=== PATIENT | male | born 1985 | race Caucasian/White ===

== ENCOUNTER 2017-12-23 23:36 | Inpatient (IN) | payer OTHER ==
[~2017-12-23] VITALS: Ht 175.3 cm; Wt 70.5 kg
--- NOTE | 2017-12-23 23:41 | ED GENERAL ADULT ---
See Addendum History of Present Illness General Chief Complaint: Psychiatric Related Complaint Stated Complaint: PSYCH EVAL Source: patient Exam Limitations: clinical condition, poor historian Vital Signs & Intake/Output Vital Signs & Intake/Output Vital Signs Date Time Temp Pulse Resp B/P B/P Pulse O2 O2 Flow FiO2 Mean Ox Delivery Rate 12/25 0640 98.4 59 20 126/81 96 Room Air 12/25 0316 98.7 82 18 142/84 99 Room Air 12/25 0007 98.6 88 18 151/96 98 Room Air 12/24 2005 98.8 52 18 114/56 97 Room Air 12/24 1756 98.1 64 20 145/67 92 Room Air 12/24 1546 98.8 63 14 132/81 99 Room Air 12/24 1227 97.6 68 20 125/69 98 Room Air 12/24 1028 98.7 69 16 139/82 98 Room Air 12/24 0825 98.3 69 16 134/72 97 Room Air Triage Nurses Notes Reviewed? yes Onset: Abrupt Duration: unknown duration Timing: unknown HPI: 12/24/17 1:14 AM 32-year-old male presents to the emergency department with a friend for depression. The patient is not sharing much other than the fact that he is depressed. He does admit to drug use. He denies drinking alcohol today. History is limited due to his failure to share what he is feeling. (Sae Rueda DO) Allergies Coded Allergies: No Known Allergies (12/24/17) (Thalia ARAGON,John Conn) Past History Travel History Traveled to [place] past 21 day No Medical History Any Pertinent Medical History? see below for history Psychiatric: depression Surgical History Surgical History: non-contributory Family History Hx Contributory? No (Sae Rueda DO) Review of Systems Review of Systems Constitutional: Denies: fever. EENTM: Reports: no symptoms. Respiratory: Reports: no symptoms. Cardiovascular: Reports: no symptoms. GI: Reports: no symptoms. Genitourinary: Reports: no symptoms. Musculoskeletal: Reports: no symptoms. Skin: Reports: no symptoms. Neurological/Psychological: Reports: no symptoms. Hematologic/Endocrine: Reports: no symptoms. Immunologic/Allergic: Reports: no symptoms. (Sae Rueda DO) Physical Exam Physical Exam General Appearance: well developed/nourished, alert, awake, anxious, mild distress Head: atraumatic, normal appearance Eyes: Bilateral: normal appearance, PERRL, EOMI. Ears, Nose, Throat: normal pharynx, normal ENT inspection Neck: normal inspection, supple Respiratory: normal breath sounds, chest non-tender Cardiovascular: regular rate/rhythm Peripheral Pulses: 4+ radial (R), 4+ radial (L) Gastrointestinal: soft, non-tender Back: normal range of motion Extremities: normal range of motion Neurologic/Psych: no motor/sensory deficits, awake, alert, oriented x 3 Skin: intact, normal color, warm/dry Core Measures ACS in differential dx? No CVA/TIA Diagnosis: No Sepsis Present: No Sepsis Focused Exam Completed? No (Sae Rueda DO) Progress Differential Diagnoses I considered the following diagnoses in my evaluation of the patient: [ Depression, and alcohol intoxication, substance] Plan of Care: Orders Procedure Date/time Status Continuous Observation Monitor 12/25 0203 Active Regular Diet 12/24 D Active Current Medications Sig/Jing Start time Last Medication Dose Stop Time Status Admin Aripiprazole 5 MG DAILY 12/24 0900 [facility] (Abilify) [place] Carbonate 600 MG 0800 12/24 0800 [facility] ([place] Carbonate) Gabapentin 100 MG Q8 12/24 0600 [facility] (Neurontin) Initial ED EKG: none (Sae Rueda DO) Comments: 12/24/2017 7:19:20 AM patient signed out to me by Dr. Rueda at shift change director. 12/24/2017 7:47:50 PM patient signed out to me by Dr. Rueda at shift change director after an uneventful emergency department stay during the day shift. 12/25/2017 8:14:52 AM patient signed out to me by Dr. Vásquez at shift change director. I attempted to evaluate Zion but he is currently in the bathroom. (Shaista ARAGON,Sae Christian) Departure Departure Disposition: STILL A PATIENT Condition: Stable Clinical Impression Primary Impression: Depression Departure Forms: Customer Survey General Discharge Information Comments 12/24/17 The patient was placed in a quiet room. Labs were sent. Crisis consultation was requested. The patient will be signed out to Dr. Noonan at 7 AM (Sae Rueda DO) Departure Comments pt to be signed out to dr. noonan, 12/25/17, 7am. (Thalia ARAGON,John Conn) Critical Care Note Critical Care Note Critical Care Time: non-applicable (Sae Rueda DO) Critical Care Note Critical Care Note Critical Care Time: non-applicable (Sae Rueda DO) Comments: 12/24/2017 7:19:20 AM patient signed out to me by Dr. Rueda at shift change director. 12/24/2017 7:47:50 PM patient signed out to me by Dr. Rueda at shift change director after an uneventful emergency department stay during the day shift. (Shaista ARAGON,Sae Christian) Departure Departure Disposition: STILL A PATIENT Condition: Stable Clinical Impression Primary Impression: Depression Departure Forms: Customer Survey General Discharge Information Comments 12/24/17 The patient was placed in a quiet room. Labs were sent. Crisis consultation was requested. The patient will be signed out to Dr. Noonan at 7 AM (Sae Rueda DO) Critical Care Note Critical Care Note Critical Care Time: non-applicable (Sae Rueda DO)
[2017-12-24 00:23] LABS: ABSOLUTE BASOPHIL COUNT 0.1 /CUMM (0.0-0.2); ABSOLUTE EOSINOPHIL COUNT 0.1 /CUMM (0.0-0.7); ABSOLUTE GRANULOCYTE CT 5.5 /CUMM (1.4-6.5); ABSOLUTE MONOCYTE COUNT 0.6 /CUMM (0.10-0.60); BASOPHIL % 1.1 % (0.0-2.0); EOSINOPHIL % 0.6 % (0-5); GRANULOCYTE % 66.5 % (42.2-75.2); HEMATOCRIT 43.3 % (42-52); MEAN CORPUSCULAR HGB 30.2 PG (27.0-31.0); MEAN CORPUSCULAR HGB CONC 34.4 G/DL (33.0-37.0); MEAN CORPUSCULAR VOLUME 87.8 FL (80.0-94.0); MEAN PLATELET VOLUME 8.9 FL (7.4-10.4); PLATELET COUNT 218 /CUMM (130-400); RBC DISTRIBUTION WIDTH 13.2 % (11.5-14.5); RED BLOOD CELL CT 4.94 /CUMM (4.70-6.10); WHITE BLOOD CELL COUNT 8.3 /CUMM (4.8-10.8)
[2017-12-24 00:40] LABS: LITHIUM < 0.2 mmol/L (0.6-1.2)
--- NOTE | 2017-12-24 13:35 | ED PSYCH CRISIS CONSULTATION ---
Crisis Consult Basic Assessment Date of Consult: 12/24/17 Responsible Person/Accompanied By: OfeliaerJavier Bal Insurance Authorization: Insurance #1: Insurance name: SELF-PAY Phone number: Policy number: Group number: Authorization number: ED Provider: Patient's ED Provider: Sae Rueda DO Primary Care Physician: Patient's PCP: Unknown PCP's Phone Number: Current Psychiatrist: None Chief Complaint: Psychiatric Related Complaint Patient's Quote: " I don't know." Present Illness: The patient is a 32 year old, male presenting to the ED, with his brother after not sleeping and acting in a bizarre nature. 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
--- NOTE | 2017-12-24 13:56 | ED PSY CRISIS COLLATERAL NOTE ---
Collateral Note Collateral Note Family/Inform/Dariel Contacts: SW met with the patients brother for collateral information, Greg Bal- ([phone]). Greg states that the patient has been acting in a bizarre manner for the last 3 days. Greg states that the brother has had an increase in stress, with being laid off from work and having relationship issues with his . Greg states that the patient and his have been going through Marriage counseling (1 year). Greg states that the patient and his have taken a separation and that their son has been staying with the patients sister. Greg states that through counseling the patient has connected with his father, who he has not been in contact with for many years. Greg states that the patient has not been sleeping and has not been eating. Greg states that on Thursday the patient began acting in a way that was not characteristic of his baseline. Per Greg the patient "started to eat cat food, act like a dog, saluting and acting like a [place] ." Greg states that he went in and out of his car "70 times," and would event planning manager front of him staring and not saying a word. Greg states that the patient was admitted to [facility] about 3-4 weeks ago and was diagnosed with Bipolar Disorder. Greg states that there was not a good discharge plan and that the patient has not been on any medications or been in any treatment. Greg states that the patient can be religiously preoccupied and has jumped into water stating he was baptizing himself. Greg is very concerned about the patient and would like him to get help.
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
[2017-12-25 16:48] VITALS: BP 129/69
[2017-12-25 19:57] VITALS: BP 144/92
[2017-12-25] MEDS ORDERED: GABAPENTIN400 M2 PO (20:16)
[2017-12-25] MEDS ORDERED: ATIVAN2 MG PO (20:19)
[2017-12-25] MEDS ORDERED: ABILIFY2 MG PO (20:21)
[2017-12-25] MEDS ORDERED: ABILIFY5 M1 PO (20:22)
[2017-12-25] MEDS ORDERED: LITHIUM CARBON600 M1 PO (20:24)
[2017-12-26 07:36] VITALS: BP 127/78
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
[2017-12-26 11:52] VITALS: BP 121/75
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
[2017-12-26 15:33] VITALS: BP 146/84
--- NOTE | 2017-12-26 17:55 | History & Physical ---
General Information and HPI MD Statement: I have seen and personally examined CHASITY MERCADO and documented this H&P. The patient is a 32 year old M who presented with a patient stated chief complaint of " My brother brought me here" Source of Information: patient Exam Limitations: no limitations History of Present Illness: 32-year-old male with past medical history significant for bipolar, depression, chronic back pain who was brought in by his family as they found that his mental behavior was not right. Patient claims that he should not have been admitted to the hospital. Apparently his brother visited him in the hotel. The bladder token for the right and then patient put his hand on the steering wheel, brother got scared that he will get hurt by the patient therefore he brought him to the hospital. Patient claims that he's under a lot of stress these days between him and his due to some marital difficulties. He also has a son. He also is facing financial difficulties. He has been overall under a lot of stress and feels depressed. He was initially agitated in the emergency room but later calmed down after receiving Haldol and Ativan. Allergies/Medications Allergies: Coded Allergies: No Known Allergies (12/24/17) Home Med list Aripiprazole (Abilify) 5 MG TABLET 5 MG PO ONCE DEPRESSION (Reported) Gabapentin 400 MG CAPSULE 400 MG PO TID MOOD STABILITY (Reported) [place] Carbonate 600 MG CAPSULE 600 MG PO BID MOOD STABILIZER (Reported) Lorazepam (Ativan) 2 MG TABLET 2 MG PO PRN ANXIETY (Reported) Past History Travel History Traveled to [place] past 21 day No Medical History Neurological: NONE EENT: NONE Cardiovascular: NONE Respiratory: NONE Gastrointestinal: NONE Hepatic: NONE Renal: NONE Musculoskeletal: chronic back pain Psychiatric: bipolar disease, depression Endocrine: NONE Blood Disorders: NONE Cancer(s): NONE ABRASIVE WHEEL MOLDER/Reproductive: NONE Isolation History: Standard Surgical History Surgical History: non-contributory Past Family/Social History Family History Relations & Conditions if any MOTHER Relation not specified for: FH: HTN (hypertension) Psychosocial History ETOH Use: denies use Illicit Drug Use: marijuana Employment History Employment Unemployed 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 Review of Systems Review of Systems Constitutional: Reports: see HPI. EENTM: Reports: see HPI. Cardiovascular: Reports: see HPI. Respiratory: Reports: see HPI. GI: Reports: see HPI. Musculoskeletal: Reports: see HPI. Neurological/Psychological: Reports: see HPI. Exam & Diagnostic Data Last 24 Hrs of Vital Signs/I&O Vital Signs Date Time Temp Pulse Resp B/P B/P Pulse O2 O2 Flow FiO2 Mean Ox Delivery Rate 12/26 1533 68 146/84 12/26 1152 71 121/75 12/26 0736 96.7 77 127/78 12/25 1957 98.8 66 144/92 Intake & Output 12/26 1600 12/26 0800 12/26 0000 Intake Total Output Total Balance Patient 156 lb Weight Physical Exam General Appearance Alert, Oriented X3, Cooperative Skin No Rashes HEENT PERRLA Neck Supple Cardiovascular Regular Rate, Normal S1, Normal S2 Lungs Clear to Auscultation Abdomen Normal Bowel Sounds, Soft, No Tenderness Neurological Cranial Nerves II through XII: Intact Last 24 Hrs of Labs/Alex: Laboratory Tests 12/26/17 0610: Hemoglobin A1c Pending, Triglycerides 115, Cholesterol 183, LDL Cholesterol, Calc 116, HDL Cholesterol 44, Cholesterol/HDL Ratio 4 Laboratory Tests 12/26 12/25 12/24 0610 1334 0711 Chemistry Hemoglobin A1c (4.2 - 5.8 %) Pending Triglycerides (<150 mg/dL) 115 Cancelled Cholesterol (< 200 MG/DL) 183 Cancelled LDL Cholesterol, Calc (65 - 129 mg/dL) 116 Cancelled HDL Cholesterol (40 - 60 mg/dL) 44 Cancelled Cholesterol/HDL Ratio (0.00 - 4.88 %) 4 Cancelled Toxicology Urine Opiates Screen (>2000 NG/ML) < 100 Methadone Screen (>300 NG/ML) < 40 Barbiturate Screen (>200 NG/ML) < 60 Ur Phencyclidine Scrn (>25 NG/ML) < 6.00 Amphetamines Screen (>1000 NG/ML) < 100 U Benzodiazepines Scrn (>200 NG/ML) < 85 Urine Cocaine Screen (>300 NG/ML) < 50 Urine Cannabis Screen (>50 NG/ML) > 80.00 H 12/24 12/23 0011 2341 Chemistry Sodium (137 - 145 mmol/L) 142 Potassium (3.5 - 5.1 mmol/L) 3.6 Chloride (98 - 107 mmol/L) 104 Carbon Dioxide (22 - 30 mmol/L) 28 Anion Gap (5 - 16) 11 BUN (9 - 20 mg/dL) 6 L Creatinine (0.7 - 1.2 mg/dL) 0.5 L Estimated GFR (>60 ml/min) > 60 BUN/Creatinine Ratio (7 - 25 %) 12.0 Glucose (65 - 99 mg/dL) 108 H Hemoglobin A1c (4.2 - 5.8 %) 5.3 Calcium (8.4 - 10.2 mg/dL) 9.2 Total Bilirubin (0.2 - 1.3 mg/dL) 0.4 AST (17 - 59 U/L) 17 ALT (21 - 72 U/L) 23 Alkaline Phosphatase (< 127 U/L) 89 Total Protein (6.3 - 8.2 g/dL) 6.9 Albumin (3.5 - 5.0 g/dL) 4.1 Globulin (1.9 - 4.2 gm/dL) 2.8 Albumin/Globulin Ratio (1.1 - 2.2 %) 1.5 Triglycerides (<150 mg/dL) 60 Cholesterol (< 200 MG/DL) 180 LDL Cholesterol, Calc (65 - 129 mg/dL) 120 HDL Cholesterol (40 - 60 mg/dL) 48 Cholesterol/HDL Ratio (0.00 - 4.88 %) 4 Hematology CBC w Diff NO MAN DIFF REQ Cancelled WBC (4.8 - 10.8 /CUMM) 8.3 Cancelled RBC (4.70 - 6.10 /CUMM) 4.94 Cancelled Hgb (14.0 - 18.0 G/DL) 14.9 Cancelled Hct (42 - 52 %) 43.3 Cancelled MCV (80.0 - 94.0 FL) 87.8 Cancelled MCH (27.0 - 31.0 PG) 30.2 Cancelled MCHC (33.0 - 37.0 G/DL) 34.4 Cancelled RDW (11.5 - 14.5 %) 13.2 Cancelled Plt Count (130 - 400 /CUMM) 218 Cancelled MPV (7.4 - 10.4 FL) 8.9 Cancelled Gran % (42.2 - 75.2 %) 66.5 Lymphocytes % (20.5 - 51.1 %) 24.6 Monocytes % (1.7 - 9.3 %) 7.2 Eosinophils % (0 - 5 %) 0.6 Basophils % (0.0 - 2.0 %) 1.1 Absolute Granulocytes (1.4 - 6.5 /CUMM) 5.5 Absolute Lymphocytes (1.2 - 3.4 /CUMM) 2.0 Absolute Monocytes (0.10 - 0.60 /CUMM) 0.6 Absolute Eosinophils (0.0 - 0.7 /CUMM) 0.1 Absolute Basophils (0.0 - 0.2 /CUMM) 0.1 Toxicology [place] (0.6 - 1.2 mmol/L) < 0.2 L Serum Alcohol (<10 MG/DL) < 10.0 Cancelled Assessment/Plan Assessment: 32-year-old male with history significant for bipolar disorder, depression and chronic back pain admitted to Inpatient Psychiatry with worsening depression and a lot of stress factors. I reviewed patient's labs. He drops is positive for cannabis. [place] levels were low. Otherwise his lab work looks okay and his vital signs are stable. I will leave psychiatric management up with psychiatrist. As Ranked By This Provider Problem List: 1. Depression 2. Bipolar 1 disorder, depressed Miscellaneous Miscellaneous Documentation Attending Case Discussed With: Nelida Kendrick M.D. Primary Care Physician: Unknown Patient sees these Specialists psychiatrist Level of Patient Care: ARNOLD Luz
[2017-12-26 20:01] VITALS: BP 136/87
[2017-12-27 07:45] VITALS: BP 136/96
--- NOTE | 2017-12-27 11:18 | CP SOUTH PROGRESS NOTE PSYCH ---
Psych (Inpt) Progress Note Progress Note Vital Signs Date Time Temp Pulse Resp B/P O2 12/27 0745 97.1 86 136/96 12/26 2000 98.9 64 136/87 12/26 1533 68 146/84 12/26 1152 71 121/75 Mental Status Examination: steady gait, cooperative, Normal psychomotor activity. No abnormal behaviors. Normal speech, not pressured. Good range of affect. denied feeling depressed today, he reported that his mood was unstable before coming to the hospital Suicidal Ideation: Denied thoughts of suicide today. Denied thoughts of homicide. Denied hallucinations. Denied feeling paranoid, there were no delusions during the interview. He was coherent, there was no significant thought disorder. Seems to have some insight into his behaviors before coming to the hospital. His judgment seems seemed reasonable in hypothetical situations, recent history suggests that he may have had impaired judgment in the past week or so He was alert and oriented to time, place, and person. He did not seem to have any difficulties with information processing during the interview. There was no evidence of short-term memory impairment during the interview. Assessment: 32-year-old single white male who was admitted to the inpatient psychiatric unit after his brother brought him to the emergency room because of erratic/bizarre behavior The examples given where the patient not sleeping for a few days in a row, patient diving into benitez and the pool reportedly fully clothed and saying that he was baptizing himself, and the patient eating cat food. Diagnosis(es): Unspecified bipolar mood disorder Treatment Plan Update: Increase Abilify to 10 mg daily Continue other medications unchanged Impression and Plan: 32-year-old single white male who was admitted to the inpatient psychiatric unit after his brother brought him to the emergency room because of erratic/bizarre behavior The examples given where the patient not sleeping for a few days in a row, patient diving into benitez and the pool reportedly fully clothed and saying that he was baptizing himself, and the patient eating cat food. - Include all active medical diagnosis that require tx DSM 5 Diagnosis(es): Unspecified bipolar mood disorder - Initial Tx Plan for Active Psych & Medical Conditions Treatment Plan: Inpatient psychiatric care with safety checks every 15 minutes and Discontinue lithium Start Abilify 5 mg daily Nursing assessments, vital signs, patient education, biopsychosocial assessment by social work Collateral information and aftercare planning and Group therapy, activity therapy, and milieu therapy
[2017-12-27 11:53] VITALS: BP 129/74
[2017-12-27 15:36] VITALS: BP 131/87
[2017-12-27 19:51] VITALS: BP 140/79
[2017-12-28 07:40] VITALS: BP 145/93
--- NOTE | 2017-12-28 08:52 | CP SOUTH PROGRESS NOTE PSYCH ---
Psych (Inpt) Progress Note Progress Note Vital Signs Date Time Temp Pulse Resp B/P B/P Pulse O2 O2 Flow FiO2 Mean Ox Delivery Rate 12/28 1606 73 144/96 12/28 1534 79 138/87 12/28 1209 76 133/89 12/28 0912 Room Air Room Air 12/28 0740 97.9 75 145/93 12/27 1951 68 140/79 Mental Status Examination: steady gait, cooperative, Normal psychomotor activity. No abnormal behaviors, normal speech, not pressured. Good range of affect, denied feeling depressed today, he reported that his mood was unstable before coming to the hospital, denied thoughts of suicide today. Denied thoughts of homicide. Denied hallucinations. Denied feeling paranoid, there were no delusions during the interview. He was coherent, there was no significant thought disorder. Seems to have some insight into his behaviors before coming to the hospital. He was alert and oriented to time, place, and person. He did not seem to have any difficulties with information processing during the interview. There was no evidence of short-term memory impairment during the interview. Assessment: 32-year-old single white male who was admitted to the inpatient psychiatric unit after his brother brought him to the emergency room because of erratic/bizarre behavior (diving into benitez and the pool reportedly fully clothed and saying that he was baptizing himself, and the patient eating cat food. Diagnosis(es): Unspecified bipolar mood disorder Treatment Plan Update: MRI of the brain Continue Abilify 10 mg daily Continue other medications unchanged
[2017-12-28 12:09] VITALS: BP 133/89
[2017-12-28 15:34] VITALS: BP 138/87
--- NOTE | 2017-12-28 15:58 | MRI REPORT ---
EXAMINATION: MR BRAIN WITHOUT CONTRAST CLINICAL INFORMATION: New psychotic symptoms. COMPARISON: None. TECHNIQUE: Multiplanar, multisequence imaging of the brain was performed without contrast. FINDINGS: No diffusion abnormalities are identified to suggest an acute or subacute infarct. The ventricles are normal in size. No mass effect or midline shift is seen. No brain parenchymal signal abnormality is noted. No extra-axial fluid collections are seen. The brainstem and cerebellum are normal. The gradient refocused acquisition is normal. The craniovertebral junction, marrow signal, and midline structures are normal. The major intracranial flow voids at the level of the [place] of Singh are preserved. The dural venous sinus flow voids are maintained. The mastoid air cells are well aerated. There is mild mucosal thickening in the maxillary and ethmoid sinuses. IMPRESSION: Normal MRI of the brain. No acute process.
[2017-12-28 16:06] VITALS: BP 144/96
--- NOTE | 2017-12-28 17:30 | SOCIAL WORKER PROG NOTE PSYCH ---
Social Work Progress Note Progress Note This resume writer met with patient. He stated that he came to the hospital because "I have alot of stress in my life" which was leading to feeling overhwhelmed. Patient stated that his "mentioned divorce" about 1 1/2 years ago. 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 This occurred about 6 months ago, which is when he started to notice increased depression. Patient stated that he smokes MJ for anxiety and depression, and has a Medical MJ Card. Patient denied any substance use, however, reported ingesting "alot of sugar" prior to coming to the ER, which he believes contributed to his behavior. Patient reported that he slept well last night. He denied SI/HI/AH/VH. He complained of difficulty urinating and stated that he has not had a bowel movement since admission (prior to that, he reported experiencing diarrhea). Patient was agreeable to a family meeting with his sister, Ninfa Mckeon, and his father, Greg Bal. Patient stated that he would like a referral to [facility] and is willing to abstain from MJ use, stating that he is able to manage his sx without use as evidence by, "I obviously haven't used MJ while I've been here [[facility]
--- NOTE | 2017-12-28 17:46 | SOCIAL WORKER PROG NOTE PSYCH ---
Social Work Progress Note Progress Note The services requested require additional review. You will be contacted regarding the status of this request if further information is needed. An authorization decision will be made within the required timeframes and details of that decision may be found under the member's authorization history. Member Name Member ID Member Subscriber Name Subscriber ID CHASITY MERCADO [id number] CHASITY MERCADO [id number] Pended Authorization # Client Authorization # Type of Request [id number] CONCURRENT Date of Admission/ Start of Services Requested From Submission Date 12/25/2017 12/28/2017 12/28/2017 Level of Service Type of Service Level of Care Type of Care INPATIENT/HLOC [facility]patient [facility] - Inpatient Hospital Reason Code P76 Provider Name & Address Provider ID Provider Alternate ID NPI # for Authorization [facility] [id number] [address] [place] [id number]
[2017-12-28 19:27] VITALS: BP 149/91
[2017-12-29 08:00] VITALS: BP 147/95
[2017-12-29 12:10] VITALS: BP 144/85
--- NOTE | 2017-12-29 13:24 | CP SOUTH PROGRESS NOTE PSYCH ---
Psych (Inpt) Progress Note Progress Note Vital Signs Date Time Temp Pulse B/P 12/29 1210 74 144/85 12/29 0800 97.2 73 147/95 12/28 1927 97.9 67 149/91 12/28 1606 73 144/96 Mental Status Examination: The patient continues to have a thought disorder (some tangents and circumstantial thought process but all-in-all not incoherent). He however is calm and cooperative. He is not agitated and shows normal psychomotor activity. No abnormal behaviors. Today he was talkative with some pressure. He showed good range of affect, denied feeling depressed today, he denied thoughts of suicide today. The patient denied thoughts of homicide, denied hallucinations, denied feeling paranoid, and there were no delusions during the interview. He was alert and oriented to time, place, and person. The patient today seems to have difficulties with attention concentration and information processing. He has told his father that there is a family meeting today when there was not. There was no evidence of short-term memory impairment during the interview. The patient gave me a long list of things that he intends to do to change his life around including: Rest, heat therapy, Spiriva, acupuncture, yoga, back surgery, a TENS unit, singing, poetry, giving self space and time, white noise, lavender/aromatherapy, etc. Assessment: Chris is a 32-year-old White Male who was admitted to the inpatient psychiatric unit on 12/25/2017 after his brother brought him to the emergency room because of erratic/bizarre behavior (diving into benitez and the pool reportedly fully clothed and saying that he was baptizing himself, and the patient eating cat food). The patient is showing some signs of improvement, however, he does seem to continue to have a thought disorder as well as impairment in insight and some eccentric, idiosyncratic thoughts and behaviors MRI of the brain was normal Diagnosis(es): Unspecified bipolar mood disorder Treatment Plan Update: Continue Abilify 10 mg daily Continue other medications unchanged
[2017-12-29 15:48] VITALS: BP 147/95
--- NOTE | 2017-12-29 17:55 | SOCIAL WORKER PROG NOTE PSYCH ---
Social Work Progress Note Progress Note This typewriter ribbon winder was informed at 11am that the patient's father was here for a family meeting. This typewriter ribbon winder spoke with patient who stated that he felt it would be good for us to meet and asked his father to come in. Yolanda Graves (medical student) and this typewriter ribbon winder met with the patient and his father. Patient's father shared that they had not been in contact for many years until recently. He reported obsersving increased depression and anxiety. He denied noticing any symptoms suggesting paranoia or psychosis. He stated that the patient does not have any access to weapons in the home. Patient's father reported that the patient has an eating disorder and sleeping disorder. Patient's father shared that the patient could stay with him after discharge if he would like. The patient was actively involved in this conversation. He was agreeable to scheduling a second family meeting with his sister, brother and (Stephanie, ). This typewriter ribbon winder met with patient. He felt that the meeting with his father went well and maintains interest in a second meeting. Patient denied SI/HI/AH/VH.
[2017-12-29 19:37] VITALS: BP 162/88
[2017-12-30 07:43] VITALS: BP 143/88
--- NOTE | 2017-12-30 09:13 | CP SOUTH PROGRESS NOTE PSYCH ---
Psych (Inpt) Progress Note Progress Note Laboratory Tests 12/30 1438 Urines Urine Color (YEL,AMB,STR) YEL Urine Clarity (CLEAR) CLEAR Urine pH (5.0 - 8.0) 6.0 Ur Specific [place] (1.001 - 1.035) <= 1.005 Urine Protein (NEG,<30 MG/DL) NEG Urine Ketones (NEG) NEG Urine Nitrite (NEG) NEG Urine Bilirubin (NEG) NEG Urine Urobilinogen (0.1 - 1.0 EU/dl) 0.2 Ur Leukocyte Esterase (NEG) NEG Ur Microscopic EXAM NOT REQUIRED Urine Hemoglobin (NEG) NEG Urine Glucose (N MG/DL) NEG Vital Signs Date Time Temp Pulse B/P B/P Pulse O2 O2 Flow FiO2 12/30 1227 69 156/80 12/30 0743 96.2 74 143/88 12/29 1937 97.7 74 162/88 12/29 1548 73 147/95 Mental Status Examination: The patient has somatic focus, today, he's complaining of back pain, difficulty urinating continues to have a thought disorder, however, he is calm and cooperative. He is not agitated, normal psychomotor activity, no abnormal behaviors, talkative with some pressure, showed good range of affect, denied feeling depressed, denied thoughts of suicide today. The patient denied thoughts of homicide, denied hallucinations, denied feeling paranoid, and there were no delusions during the interview. He was alert and oriented to time, place, and person. The patient today seems to have difficulties with attention concentration, no evidence of short-term memory impairment during the interview. Assessment: Chris is a 32-year-old White Male who was admitted to the inpatient psychiatric unit on 12/25/2017 after his brother brought him to the emergency room because of erratic/bizarre behavior (diving into benitez and the pool reportedly fully clothed and saying that he was baptizing himself, and the patient eating cat food). The patient is showing some signs of improvement, however, he does seem to continue to have a thought disorder as well as impairment in insight and some eccentric, idiosyncratic thoughts and behaviors Diagnosis(es): Unspecified bipolar mood disorder Treatment Plan Update: reduce duloxetine to 30 mg due to c/o "difficulty urinating" Add ulram for back pain bethanechol 10 mg x once Urinanalysis Continue Abilify 10 mg daily Bethanechol Chloride 10 MG ONCE ONE 12/30 1230 DC PO 12/30 1231 PO PO 0934 Gabapentin 1,200 MG AT BEDTIME 12/29 2100 AC 12/29 PO 2119 Gabapentin 600 MG 0800 & 1300 12/29 0800 AC 12/30 PO 1406 Haloperidol 5 MG Q6-PRN PRN 12/25 1945 AC 12/30 PO 12/29 1853 Ibuprofen 400 MG Q4P PRN 12/27 1230 AC 12/30 PO 0915 Magnesium Hydroxide 30 ML AT BEDTIME PRN 12/25 1345 AC PO PO 2207 Tramadol HCl 50 MG Q6-PRN PRN 12/30 1230 AC PO PO
[2017-12-30 12:27] VITALS: BP 156/80
--- NOTE | 2017-12-30 15:38 | SOCIAL WORKER PROG NOTE PSYCH ---
See Addendum Social Work Progress Note Progress Note This freelance copywriter met with patient. He complained of back pain causing him to have a "bad day." He reported his mood generally "pretty level" and stated that he is "satisfied with mood stabilizers." Patient denied SI/HI/AH/VH. He was agreeable to a family meeting with his , sister and brother. PHOENIX's signed and this freelance copywriter will contact his to coordinate the meeting. Patient stated that he would like to go to [facility] for IOP. He also requested an appointment with [facility]. This freelance copywriter spoke with patient's , Stephanie Bal, by phone ([phone]) to schedule a family meeting. She stated that she is not available until 4pm (nor are his sister and brother) due to work. This freelance copywriter agreed to speak with Dr. Peralta about his schedule and will call Stephanie in the morning to schedule the meeting. Stephanie expressed concern about the patient having a provider after discharge and stated that she has scheduled an appointment with Michelle Mccurdy APRN with [facility] in [facility] (01/08/18 at 2pm). This freelance copywriter informed her that discharge planning occurs and this freelance copywriter will be contacting [facility] in interest of their IOP. She thanked this freelance copywriter for the call and stated that she would be visiting the patient this evening. This freelance copywriter contacted [facility] ([phone]) and spoke with Sandra. She confirmed that they have an IOP (both mental health and dual) and that clinical could be faxed over for a referral. She stated that she would be in contact with this freelance copywriter to schedule an intake appointment. Sandra stated that intakes are being scheduled next week and, if accepted, the patient would be seen by a medication provider that day he starts IOP. The following were faxed to [facility], attn: Sandra, at [phone] on 12/30/17 at 1603: Demographics Social history Crisis Diagnostic Assessment Initial Assessment Medication List
[2017-12-30 16:18] VITALS: BP 155/98
[2017-12-30 19:42] VITALS: BP 151/93
[2017-12-31 07:33] VITALS: BP 144/87
--- NOTE | 2017-12-31 10:48 | SOCIAL WORKER PROG NOTE PSYCH ---
Social Work Progress Note Progress Note This insurance underwriter sales spoke with Marce Davis) by phone in interest of obtaining an inpatient authorization ([id number]). She authorized 7 days, starting 12/25/17 -01/01/18 [place] an [place] # [place] [id number]. may bill directly to [facility]. Bhavesh Mar and Jefe Tom were informed of this.
[2017-12-31 12:00] VITALS: BP 140/84
--- NOTE | 2017-12-31 12:41 | CP SOUTH PROGRESS NOTE PSYCH ---
Psych (Inpt) Progress Note Progress Note Vital Signs Date Time Temp Pulse B/P B/P Pulse O2 FiO2 12/31 1200 87 140/84 12/31 0733 98.8 88 144/87 12/30 1942 98.4 92 151/93 12/30 1618 80 155/98 Mental Status Examination: Patient was interviewed at length by the medical student. 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 The patient denied thoughts of homicide, He was alert and oriented to time, place, and person. The patient today seems to have difficulties with attention concentration, no evidence of short-term memory impairment during the interview. Assessment: Chris Bal is a 32-year-old White Male who was admitted to [facility]'s inpatient psychiatric unit on 12/25/2017 after his brother brought him to the emergency room because of erratic/bizarre behavior (diving into benitez and the pool reportedly fully clothed and saying that he was baptizing himself, and the patient eating cat food). The patient has not been having any thoughts of suicide or violence or homicide, however, he has a subtle thought disorder as well as impairment in insight and eccentric, idiosyncratic/?delusional thoughts and behaviors. Further interviewing today revealed recent geuine hallucinations (audio) as well as delusional thoughts Differential Diagnoses: Unspecified bipolar mood disorder Unspecified Psychotic Disorder Cannabis Use Disorder Treatment Plan Update: D/C duloxetine Continue Abilify 10 mg daily Gabapentin 1,200 MG AT BEDTIME Gabapentin 600 MG 0800 & 1300 Haloperidol 5 MG Q6-PRN PRN PO PO 0934 Gabapentin 1,200 MG AT BEDTIME 12/29 2100 AC 12/29 PO 2119 Gabapentin 600 MG 0800 & 1300 12/29 0800 AC 12/30 PO 1406 Haloperidol 5 MG Q6-PRN PRN 12/25 1945 AC 12/30 PO 12/29 1853 Ibuprofen 400 MG Q4P PRN 12/27 1230 AC 12/30 PO 0915 Magnesium Hydroxide 30 ML AT BEDTIME PRN 12/25 1345 AC PO PO 2207 Tramadol HCl 50 MG Q6-PRN PRN 12/30 1230 AC PO PO DICTATED BY: Fabian ARAGON,Dami
[2017-12-31 15:39] VITALS: BP 151/94
--- NOTE | 2017-12-31 17:18 | SOCIAL WORKER PROG NOTE PSYCH ---
Social Work Progress Note Progress Note This grant writer scheduled a family meeting with patient's , Stephanie, for today at 4pm. She will contact his brother, Greg, and sister, Ninfa. Ninfa later contacted this grant writer and she will attend the meeting by phone. This grant writer met with patient. He described his mood as "excellent" and only had concerns about his back pain. Patient stated that he does not need an appointment to be made with pain management, and will contact them himself when he discharges. Patient denied SI/HI/AH/VH. Patient and this grant writer spoke with Sandra at [facility] and an intake appointment to assess for IOP is scheduled for 01/04/18 at 12:30pm. 3:55pm Aditya Graves [facility] [place] commercial intern and this grant writer met with the patient, his Stephanie Bal and sister Ninfa Powell ([phone]) in the conference room. Dr. Peralta addressed questions and concerns about medictions, diagnosis and treatment. Discharge plans were also discussed (IOP intake at [facility]) and the plan for the patient to stay with his sister, Ninfa, temporarily upon discharge. Patient's family discussed his erratic behavior such as wanting to dive into a benitez that is only 1 foot deep and buying a democrat bus. Stephanie shared that there were nights where he would stay up all night and go to the casino late at night. Ninfa observed a personality change, especially when trying to help others - "it broke him." Ninfa and Stephanie stated that these concerns and observations in changed personality took place over the past 2-3 months. Stephanie and Ninfa stated that there are no guns or weapons in the family homes and patient confirmed that he does not have access to guns or weapons. Dr. Peralta recommended that the patient not discharge tomorrow. Mary supported this, which patient ultimately agreed to. The intake with [facility] will remain on 01/04/18 for now. After Ninfa hung up, patient returned to the unit. Aditya Graves and this grant writer met with Stephanie. She expressed concerns about the patient regarding his delusions that "focused on me [Stephanie]" regarding jealousy. Dr. Peralta provided additional education on diagnoses and symptoms. She stated that she has a therapist and has attended [facility] groups. She also plans to attend the family group on [facility] on Sundays.
[2017-12-31 19:36] VITALS: BP 155/89
[2018-01-01 07:29] VITALS: BP 151/83
[2018-01-01 12:15] VITALS: BP 134/83
--- NOTE | 2018-01-01 12:30 | CP SOUTH PROGRESS NOTE PSYCH ---
Psych (Inpt) Progress Note Progress Note Mental Status Examination: Patient has a subtle thought disorder denied hallucinations (prior to admission was hearing a voice that he attributed to his aunt/father's sister) denied feeling paranoid, he was calm and cooperative, normal psychomotor activity/not agitated no abnormal behaviors, talkative with some pressure, showed good range of affect , denied feeling depressed, denied thoughts of suicide today. The patient denied thoughts of homicide, He was alert and oriented to time, place, and person. Some difficulties with attention concentration, no evidence of short-term memory impairment during the interview. Assessment: Chris Bal is a 32-year-old White Male who was admitted to [facility]'s inpatient psychiatric unit on 12/25/2017 after his brother brought him to the emergency room because of erratic/bizarre behavior. pt. acknowledged that there was bhaskar hallucinations in the past 3-4 weeks, he consulted a psychic-medium who was able to get him to communicate with his aunt (he was hearing a voice he attributed to his aunt) a subtle thought disorder as well as impairment in insight and eccentric, idiosyncratic/?delusional thoughts and behaviors. Differential Diagnoses: Unspecified bipolar mood disorder Unspecified Psychotic Disorder Cannabis Use Disorder Treatment Plan Update: Continue Abilify 10 mg daily Gabapentin 1,200 MG AT BEDTIME Gabapentin 600 MG 0800 & 1300 D/C duloxetine Continue Abilify 10 mg daily Gabapentin 1,200 MG AT BEDTIME Gabapentin 600 MG 0800 & 1300 Haloperidol 5 MG Q6-PRN PRN
--- NOTE | 2018-01-01 14:24 | SOCIAL WORKER PROG NOTE PSYCH ---
Social Work Progress Note Progress Note 2:20pm: This gag writer spoke with Alyssa Hernandez by phone in interest of providing a concurrent review to request additional inpatient days ([phone]). She authorized an additional three days with next review or discharge clinical due on 01/04/18. She was informed of anticipated discharge on 01/04/18 with IOP intake scheduled; she stated that if more days are needed to call [phone].
--- NOTE | 2018-01-01 14:52 | SOCIAL WORKER PROG NOTE PSYCH ---
Social Work Progress Note Progress Note [facility] concurrent review: Determination Status: PENDED The services requested require additional review. You will be contacted regarding the status of this request if further information is needed. An authorization decision will be made within the required timeframes and details of that decision may be found under the member's authorization history. Member Name Member ID Member Subscriber Name Subscriber ID CHASITY MERCADO [id number] CHASITYKENIA CURRYMAGGIEEldon [id number] Pended Authorization # Client Authorization # Type of Request [id number] CONCURRENT Date of Admission/ Start of Services Requested From Submission Date 12/25/2017 01/01/2018 01/01/2018 Level of Service Type of Service Level of Care Type of Care INPATIENT/[facility]
[2018-01-01 15:55] VITALS: BP 130/73
--- NOTE | 2018-01-01 17:49 | SOCIAL WORKER PROG NOTE PSYCH ---
Social Work Progress Note Progress Note Patient requested to meet with this flex o writer operator walking around [facility] as he was complaining of back pain and sitting would aggrevate the pain. He reflected on yesterday's family meeting and while it was difficult at times, he reported that overall is was a good meeting. He discussed feeling as though staying with his sister would be a good alternative to returning home to his at this time. Patient discussed utilizing the weekend to continue to adjust to medications and will also attend the groups that are offered. Patient will contact his sister to plan for a ride on Thursday to [facility] intake in the event that the discharge proceeds as anticipated. Patient denied SI/HI/AH/VH. He was spontaneous and cooperative during this conversation and appeared motivated to continue with treatment both on this unit and after discharge.
[2018-01-01 19:45] VITALS: BP 138/80
[2018-01-02 08:00] VITALS: BP 129/77
[2018-01-02 12:33] VITALS: BP 124/79
[2018-01-02 15:56] VITALS: BP 139/77
[2018-01-02 20:03] VITALS: BP 136/79
--- NOTE | 2018-01-02 22:59 | CP SOUTH PROGRESS NOTE PSYCH ---
Psych (Inpt) Progress Note Progress Note Chief Complaint Discussed overnight events with RN and staff. As per RN report, the patient was awaken at the middle of the night received one dose of Xanax with positive effect. No other PRNs/restrains required in the last 24hrs. I saw the patient this morning with the treatment team. He reported feeling tired and anxious reported that he was awaken at the middle of the night and that Xanax did help him to sleep. However, he is concerned about addiction risk and his inability to get Xanax upon discharge. He agreed to switch to Klonopin at bedtime. He also reported feeling anxious during the day requesting something. Otherwise, he denies suicidal/homicidal thoughts/intent/plans at present. he has adequate appetite he is compliant to medications, no side effects reported and none in evidence. However, he reported that Trazodone is not helping his sleep and like to stop it. Vitals reviewed Vital Signs Result Date Time B/P 136/79 01/02 2003 Temp 98.1 01/02 2003 Pulse 76 01/02 2003 O2 Delivery Room Air 12/28 09 O2 Flow Rate Room Air 12/28 09 Pulse Ox 98 12/25 1545 Resp 18 12/25 1545 Mental Status Examination Consciousness: Awake, alert Orientation: A&O x4, oriented to person, place, year, situation Appearance: appears stated age, dressed in casual attire, with fair hygiene Behavior: calm and cooperative Attitude: open and engaged Eye Contact: appropriate Speech: articulate, fluent, coherent with regular rate, tone and rhythm Mood: anxious Affect: mood-congruent, constricted to anxious with normal emotional reactivity Thought Process: organized Thought Content: anxious, insomnia, slightly hyperverbal, denies suicidal/ homicidal ideations at the time of the interview, no delusions elicited/ verbalized at present, no withdrawal sxs at present Perceptions: denies audiovisual hallucinations Attention: attentive to interview Memory: grossly intact Insight: limited Judgment: limited no psychomotor abnormalities noted Motor: no abnormal movements, Gait WNL Neuro: grossly intact Independent in ADL's and iADL's Labs Reviewed as documented in chart. Allergy Reviewed as documented in chart. Medications Reviewed as documented in chart. Current Medications Sig/Jing Start time Last Medication Dose Route Stop Time Status Admin Acetaminophen 650 MG .STK-MED ONE 06/30 0851 DC PO 01/02 0852 Acetaminophen 650 MG Q4P PRN 12/25 1345 AC 01/02 PO 0852 Al Hydroxide/Mg 30 ML Q4-PRN PRN 12/25 1345 AC Hydroxide PO Alprazolam 0.5 MG Q4 HRS NEEDED PRN 12/31 1645 DC 01/02 PO 01/07 1644 1247 Aripiprazole 10 MG DAILY 12/28 0900 AC 01/02 PO 0850 Benzocaine/Menthol 1 ABEL Q4P PRN 01/01 0730 AC 01/02 PO 2024 Clonazepam 0.5 MG BID PRN 01/02 1500 AC 01/02 PO 01/09 1459 2025 Gabapentin 1,200 MG AT BEDTIME 12/29 2100 AC 01/02 PO 202 Gabapentin 600 MG 0800 & 1300 12/29 0800 AC 01/02 PO 1246 Haloperidol 5 MG Q6-PRN PRN 12/25 1945 AC 12/31 PO 0239 Ibuprofen 400 MG Q4P PRN 12/27 1230 AC 01/02 PO 1018 Magnesium Hydroxide 30 ML AT BEDTIME PRN 12/25 1345 AC PO Tramadol HCl 50 MG Q6-PRN PRN 12/30 1230 AC 01/02 PO 2002 Trazodone HCl 50 MG AT BEDTIME NEED.. 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 He has a history of MDD and severe alcohol use disorder. His BAL on admission was 270+. No appearing withdrawal sxs at present. Diagnosis Unspecified bipolar mood disorder Unspecified Psychotic Disorder Cannabis Use Disorder Treatment Plan Discontinue Xanax for risk of addiction, as per patient request Discontinue Trazodone, ineffective, as per the patient request Start Klonoopin 0.5 mg PO BID PRN for anxiety and insomnia Continue other medication regimen The patient was educated about reasons for prescribing the above medications, expected benefits and likelihood of clinical improvement, as well as potential side effects and relevant risks; treatment alternatives and side effects of the alternatives expected course without treatment and results of not receiving care. The Patient was educated on how to take the medications. He verbalized understanding and in agreement with the treatment plan.
[2018-01-03 07:54] VITALS: BP 142/89
[2018-01-03 12:00] VITALS: BP 139/86
[2018-01-03 15:44] VITALS: BP 143/80
--- NOTE | 2018-01-03 18:05 | CP SOUTH PROGRESS NOTE PSYCH ---
Psych (Inpt) Progress Note Progress Note Chief Complaint Discussed overnight events with RN and staff. No PRNs/restrains required in the last 24hrs. As per RN report, the patient slept well. I saw the patient this morning with the treatment team. He reported feeling good appeared happy from current medication regimen stated I slept well whatever I am on is working well no complaints, visible in the unit interacting with peers. He denies suicidal ideations at present. he has adequate appetite he is compliant to medications, no side effects reported and none in evidence. Vitals reviewed Vital Signs Result Date Time B/P 143/80 01/03 1544 Pulse 83 01/03 1544 Temp 98.1 01/03 1453 O2 Delivery Room Air 12/28 0912 O2 Flow Rate Room Air 12/28 09 Pulse Ox 98 12/25 1545 Resp 18 12/25 1545 Mental Status Examination Consciousness: Awake, alert Orientation: A&O x4, oriented to person, place, year, situation Appearance: appears stated age, dressed in casual attire, with fair hygiene Behavior: calm and cooperative Attitude: open and engaged Eye Contact: appropriate Speech: articulate, fluent, coherent, talkative but regular rate, tone and rhythm Mood: good Affect: mood-congruent, brighter Thought Process: organized Thought Content: denies suicidal/homicidal ideations at the time of the interview, no delusions elicited/verbalized at present, no withdrawal sxs Perceptions: denies hallucinations Attention: attentive to interview Memory: grossly intact Insight: fair Judgment: fair no psychomotor abnormalities Motor: no abnormal movements, Gait WNL Neuro: grossly intact Independent in ADL's and iADL's Labs Reviewed as documented in chart. Allergy Reviewed as documented in chart. Medications Reviewed as documented in chart. Current Medications Sig/Jing Start time Last Medication Dose Route Stop Time Status Admin Acetaminophen 650 MG .STK-MED ONE 01/03 0053 DC PO 01/03 0054 Acetaminophen 650 MG Q4P PRN 12/25 1345 AC 01/03 PO 1635 Al Hydroxide/Mg 30 ML Q4-PRN PRN 12/25 1345 AC Hydroxide PO Aripiprazole 10 MG DAILY 12/28 0900 AC 01/03 PO 0807 Benzocaine/Menthol 1 ABEL Q4P PRN 01/01 0730 AC 01/03 PO 1256 Clonazepam 0.5 MG BID PRN 01/02 1500 AC 01/03 PO 01/09 1459 0054 Gabapentin 1,200 MG AT BEDTIME 12/29 2100 AC 01/02 PO 2024 Gabapentin 600 MG 0800 & 1300 12/29 0800 AC 01/03 PO 1256 Haloperidol 5 MG Q6-PRN PRN 12/25 1945 AC 12/31 PO 0239 Ibuprofen 400 MG Q4P PRN 12/27 1230 AC 01/03 PO 1411 Magnesium Hydroxide 30 ML AT BEDTIME PRN 12/25 1345 AC PO Tramadol HCl 50 MG Q6-PRN PRN 12/30 1230 AC 01/03 PO 1905 Assessment 53-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 He has a history of MDD and severe alcohol use disorder. His BAL on admission was 270+. No appearing withdrawal sxs at present. Diagnosis Unspecified bipolar mood disorder Unspecified Psychotic Disorder Cannabis Use Disorder Treatment Plan Continue medication regimen
[2018-01-03 20:13] VITALS: BP 140/79
[2018-01-04 07:38] VITALS: BP 144/81
[2018-01-04] MEDS ORDERED: ABILIFY10 M1 PO (07:58)
[2018-01-04] MEDS ORDERED: IBUPROFEN400 M1 PO (07:58)
--- NOTE | 2018-01-04 07:58 | Patient Discharge Instructions ---
Psych Discharge Inst General Discharge Information Reason for Admission: "erratic behavior" per family's reports Psy Discharge Primary Diag+ Unspecified Psychotic Disorder Psy Discharge Secondary Diag+ Cannabis Use Disorder Summary Tests/Major Procedures Lab Cholesterol 183 MG/DL 12/26/17 0610 Cholesterol/HDL Ratio 4 % 12/26/17 0610 HDL Cholesterol 44 mg/dL 12/26/17 0610 Hemoglobin A1c 5.3 % 12/26/17 0610 LDL Cholesterol, Calc 116 mg/dL 12/26/17 0610 Triglycerides 115 mg/dL 12/26/17 0610 Studies Pending at DC: None Patient Instructions Contact Information Your Psychiatrist on [facility] was Fabian ARAGON,aDmi * If you are experiencing an emergency related to this hospitalization, please call [phone] to contact the treating psychiatrist or the psychiatrist-on- call. * To Request a copy of your medical records, please contact the Medical Records Department at [phone]. * To request results of studies pending at the time of discharge, please call [phone]. * Continue your Medications until directed to stop by your Healthcare provider. General Medication Information Please continue to take your new medications and your continued home medications , unless otherwise indicated on your discharge medication list, or unless directed by your MD or JUVENILE CORRECTIONAL OFFICER to stop them. Special Instructions Diet Regular Activity Normal - Tobacco Use Treatment Offered Post DC Medications Offered: Not Applicable Post DC Tobacco Treatment Plan: Not Applicable - EtOH/Drug Use D/O Treatment Offered Post DC Medications Offered: Med Not Indicated for D/O Post DC EtOH/SubAbuse TX Plan: Other SubAbuse/Dual Pgm Metabolic Screening Patient on a neuroleptic(s) . Enter below results for Hemoglobin A1C, and lipid panel if obtained during the last 365 days. BMI: 22.900 Blood Pressure: 144/81 Laboratory Results From [facility] (If applicable): Lab Cholesterol 183 MG/DL 12/26/17 0610 Cholesterol/HDL Ratio 4 % 12/26/17 0610 HDL Cholesterol 44 mg/dL 12/26/17 0610 Hemoglobin A1c 5.3 % 12/26/17 0610 LDL Cholesterol, Calc 116 mg/dL 12/26/17 0610 Triglycerides 115 mg/dL 12/26/17 0610 Advance Directives Does the Patient have Medical Advance Directives No/Refused further info Does Pt have Psychiatric Advance Directives? No/Refused further info Does Patient have a Designated Surrogate Decision Maker: No Information About Psychiatric Advance Directives Provided? Refused Discharge Plan Post Hospital Treatment Plan: [facility]'s IOP
[2018-01-04] MEDS ORDERED: NEURONTIN600 M1 PO (08:20)
--- NOTE | 2018-01-04 08:25 | CP SOUTH PROGRESS NOTE PSYCH ---
Psych (Inpt) Progress Note Progress Note Vital Signs Date Time Temp Pulse B/P B/P / 0738 97.3 71 144/81 01/03 2013 97.8 78 140/79 01/03 1544 83 143/80 01/03 1453 98.1 Mental Status Examination: Chris's thought process was -for the most part- coherent and organized He denied hallucinations, denied feeling paranoid, and there were no specific delusions today Patient was alert and oriented to time, place, and person. He was calm and cooperative. He reported his mood was "good" over the weekend, his brought their 4-year-old son to visit and patient was very happy about that. he showed normal psychomotor activity/not agitated, no pacing, no akathisia, no abnormal behaviors, talkative but not pressured today He showed bright affect, he denied feeling depressed, denied thoughts of suicide today. The patient denied thoughts of homicide, minor difficulties with attention concentration, no evidence of short-term memory impairment during the interview. Assessment: Chris Bal is a 32-year-old White Male who was admitted to [facility]'s Inpatient psychiatric unit on 12/25/2017 after his brother brought him to the ED because of erratic/bizarre behavior. Chris acknowledged that there were audio hallucinations in the past 3-4 weeks, he consulted a psychic-medium who was able to get him to communicate with his aunt (he was hearing a voice he attributed to his aunt), Chris initially showed a subtle thought disorder as well as impairment in insight and eccentric, idiosyncratic/? delusional thoughts and behaviors. Since his admission on 12/25/2017 (~11 days ago), he has shown significant improvement in thought process and content. There were no thoughts of suicide or violence throughout his stay on the inpatient psychiatric unit. Discharge Diagnoses: Unspecified Psychotic Disorder Cannabis Use Disorder Treatment Plan Update: [facility] home (to stay at his sister's house in [place], [place]) and follow up with [facility]'s IOP
--- NOTE | 2018-01-04 08:41 | DISCHARGE SUMMARY REPORT-PSYCH ---
Visit Information Visit Dates/Diagnosis' Admission Date: 12/25/17 Discharge Date: 01/04/18 Reason for Admission: "erratic behavior" per family's reports Psy Discharge Primary Diag: Unspecified Psychotic Disorder Psy Discharge Secondary Diag: Cannabis Use Disorder Hospital Course Significant Lab Findings: Lab Cholesterol 183 MG/DL 12/26/17 0610 Cholesterol/HDL Ratio 4 % 12/26/17 0610 HDL Cholesterol 44 mg/dL 12/26/17 0610 Hemoglobin A1c 5.3 % 12/26/17 0610 LDL Cholesterol, Calc 116 mg/dL 12/26/17 0610 Triglycerides 115 mg/dL 12/26/17 0610 Course Complications: The patient did not have any complications while he was on the inpatient psychiatric unit. Consultations: Patient had a history and physical examination by the hospitalist. Please refer to the patient's electronic health record for the details of the H&P. The patient had an MRI of the brain which turned out to be normal Allergies: Coded Allergies: No Known Allergies (12/24/17) Hospital Course/[place] Response: 01/04/2018: Mental Status Examination: Chris's thought process was -for the most part- coherent and organized He denied hallucinations, denied feeling paranoid, and there were no specific delusions today Patient was alert and oriented to time, place, and person. He was calm and cooperative. He reported his mood was "good" over the weekend, his brought their 4-year-old son to visit and patient was very happy about that. he showed normal psychomotor activity/not agitated, no pacing, no akathisia, no abnormal behaviors, talkative but not pressured today He showed bright affect, he denied feeling depressed, denied thoughts of suicide today. The patient denied thoughts of homicide, minor difficulties with attention concentration, no evidence of short-term memory impairment during the interview. Assessment: Chris Bal is a 32-year-old White Male who was admitted to 's Inpatient psychiatric unit on 12/25/2017 after his brother brought him to the ED because of erratic/bizarre behavior. Chris acknowledged that there were audio hallucinations in the past 3-4 weeks, he consulted a psychic-medium who was able to get him to communicate with his aunt (he was hearing a voice he attributed to his aunt), Chris initially showed a subtle thought disorder as well as impairment in insight and eccentric, idiosyncratic/? delusional thoughts and behaviors. Since his admission on 12/25/2017 (~11 days ago), he has shown significant improvement in thought process and content. There were no thoughts of suicide or violence throughout his stay on the inpatient psychiatric unit. Discharge Diagnoses: Unspecified Psychotic Disorder Cannabis Use Disorder Treatment Plan Update: Discahrge home (to stay at his sister's house in [place], [place]) and follow up with [facility]'s IOP Discharge HBIPS - Tobacco Use Treatment Offered - EtOH/Drug Use D/O Treatment Offered Metabolic Screening - Screen if on a Neuroleptic Medication - Metabolic screening should include: - Blood Pressure, BMI, Glucose or Hgb A1c, & a - Lipid profile from within the past 365 days. Metabolic Screening Patient on a neuroleptic BMI: 22.900 Blood Pressure: 144/81 Laboratory Results From [facility] (If applicable): Lab Cholesterol 183 MG/DL 12/26/17 0610 Cholesterol/HDL Ratio 4 % 12/26/17 0610 HDL Cholesterol 44 mg/dL 12/26/17 0610 Hemoglobin A1c 5.3 % 12/26/17 0610 LDL Cholesterol, Calc 116 mg/dL 12/26/17 0610 Triglycerides 115 mg/dL 12/26/17 0610 Discharge Instructions General Discharge Information Multiple Neuroleptics: Not Applicable Discharge Diet Regular Discharge Activity Normal DC Disposition: Home (to sister in [place]) Referrals Ordered Referrals Provider Referral 01/04/18 For Providers: [[facility]] For Groups: [[facility]] [facility] [address] [place] [address] Initial Intake: Thursday, January 04, 2018, at 12:30pm Patient is recommended to engage in IOP Prescriptions Stop taking the following medications: Gabapentin (Gabapentin) 400 MG CAPSULE ORAL THREE TIMES DAILY Lorazepam (Ativan) 2 MG TABLET ORAL as needed for ANXIETY Aripiprazole (Abilify) 5 MG TABLET ORAL GIVE ONCE [place] Carbonate ([place] Carbonate) 600 MG CAPSULE ORAL TWICE DAILY Start taking the following new medications: Ibuprofen (Ibuprofen) 400 MG TABLET 400 Milligram ORAL EVERY 4 HOURS NEEDED as needed for back pain of any severity Qty = 60 No Refills Comments: Last Taken:01/04/18 Time:4AM Aripiprazole (Abilify) 10 MG TABLET 10 Milligram ORAL DAILY Qty = 30 No Refills Comments: Last Taken:01/04/18 Time:8:30AM Gabapentin (Neurontin) 600 MG TABLET 1 Tablet ORAL SEE INSTRUCTIONS Qty = 60 No Refills Instructions: 1 Tab in AN,1 tab in afternoon and 2 tabs QHS Comments: Last Taken:01/04/18 Time:8:30AM Studies Pending at Discharge None Copies To: [facility]
--- NOTE | 2018-01-04 16:01 | SOCIAL WORKER PROG NOTE PSYCH ---
Social Work Progress Note Progress Note This credit underwriter met with patient. Patient shared that he was looking forward to discharging today and that his brother will provide transportation from to [facility] for the 12:30pm intake appointment. This credit underwriter confirmed this appointment by calling [facility] this morning. Patient stated that he will schedule a pain management appointment and does not need any additional referrals or appointments. He stated that he has an appointment with his marriage counselor today at 4pm. Patient denied SI/HI/AH/VH. He stated that he will stay with his sister, Ninfa. He identified a safety plan of "I would call 911" and accepted the crisis numbers and warm lines upon discharge today. He expressed gratitude for treatment and care that he was provided from the treatment team at . Faxed Referral(s) Referred To: [facility] Transition of Care Documents sent: Health Summary Faxed to: [facility] Fax #: [phone] Faxed by: Shawna Hardwick LCSW Date faxed: 01/04/18 Time Faxed: [phone]
--- NOTE | 2018-01-05 18:20 | SOCIAL WORKER PROG NOTE PSYCH ---
Social Work Progress Note Progress Note This senior copywriter called patient's insurance ([phone]) and was informed by the answering service that they are closed, returning 01/07/18. They will be contacted on 01/07/18 to provide discharge clinical.
== END 2018-01-04 10:19 | DRG 885 ==
LOC: ERH 23:36 → CP SOUTH 12-25 13:29 → ERHI 12-25 13:29 → ENTRNSPT 12-25 16:02 → EDTRNSPTSTS 12-25 16:08 → CP SOUTH 12-25 16:17 → CMPTRNSPT 12-25 16:35 → CP SOUTH 01-04 10:19
PROVIDERS: Emergency Medicine; Psychiatry & Neurology Psychiatry
DX: F29 Unspecified psychosis not due to a substance or known physiological condition (principal); F12.90 Cannabis use, unspecified, uncomplicated
CPT/HCPCS: 70551; 36415; 80307; 81003; 87086; 93005; 93010; 96372; G0463; G0480; J0401; J1630